=== PATIENT | female | born 1930 | race Caucasian/White ===

== ENCOUNTER → 2017-01-18 | Outpatient (CLI) | payer MEDICARE ==
[~2017-01-18] MED LIST: ARICEPT10 MG ORAL; CALCIUM500 M3 PO; FUROSEMIDE40 MG ORAL; HEPARIN SO5000 UNIT2 SUBQ; MACROBID100 MG ORAL; METRONIDAZOLE500 MG ORAL; NAMENDA10 MG ORAL; POTASSIUM CHLO20 ME1 ORAL; STOOL SOFTENER100 M1 PO; TYLENOL650 MG/20. ORAL; VITAMIN D31000 UNI1 PO
--- NOTE | 2017-01-18 16:17 | Diagnostic Imaging Report ---
Indication: Abdominal pain Comparison: None Single view of the abdomen obtained Bowel gas pattern is nonspecific. Bones are osteopenic. 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 Impression: No acute findings
== END | disposition home or self-care (01) ==
LOC: RAD 15:35
DX: R10.9 Unspecified abdominal pain (principal); M85.80 Other specified disorders of bone density and structure, unspecified site; M24.7 Protrusio acetabuli
CPT/HCPCS: 74000